=== PATIENT | male | born 1970 | race Hispanic/Latino ===

== ENCOUNTER 2017-07-05 13:27 | Emergency (ER) | payer BC ==
[2017-07-05 14:05] VITALS: BP 117/73
[2017-07-05 14:33] LABS: Basophils % (Auto) 0.3 % (0.0-1.8); Eosinophils % (Auto) 0.6 % (0.0-4.3); Hematocrit 42.2 % (35.5-45.6); Hemoglobin 14.4 gm/dl (11.8-15.2); Mean Corpuscular HGB Conc 34 % (32-34); Mean Corpuscular Hemoglobin 32 pg (28-32); Mean Corpuscular Volume 94 fl (84-94); Platelet Count 249 K/mm3 (140-440); Red Cell Distribution Width 12.2 % (13.2-15.2); White Blood Count 9.8 K/mm3 (4.5-11.0)
[2017-07-05 14:56] LABS: Anion Gap 19 mmol/L; BUN/Creatinine Ratio 21; Blood Urea Nitrogen 17 mg/dL (9-20); Calcium 9.1 mg/dL (8.4-10.2); Carbon Dioxide 25 mmol/L (22-30); Chloride 100.2 mmol/L (98-107); Glucose 91 mg/dL (75-100); Potassium 4.9 mmol/L (3.6-5.0); Sodium 139 mmol/L (137-145)
[2017-07-05 16:05] LABS: INR 0.98 (0.87-1.13)
[2017-07-05 16:06] LABS: Partial Thromboplastin Time 31.3 Sec. (24.2-36.6)
[2017-07-05 16:21] LABS: Alanine Aminotransferase 40 units/L (7-56); Albumin 4.7 g/dL (3.9-5); Alkaline Phosphatase 80 units/L (35-129)
[2017-07-05 16:27] LABS: Bilirubin,Direct < 0.2 mg/dL (0-0.2); Bilirubin,Indirect 0.1 mg/dL
--- NOTE | 2017-07-05 17:46 | Event Note ---
Date: 07/05/17 I have seen and evaluated the patient for chest heaviness, and the plan is to admit for stress test, but patient refused and signed AMA from ED.
--- NOTE | 2017-07-05 18:07 | Emergency Department Report ---
ED Chest Pain HPI - General Chief Complaint: Chest Pain Stated Complaint: CHEST PAIN Time Seen by Provider: 07/05/17 15:09 Source: patient, EMS Mode of arrival: Ambulatory Limitations: No Limitations - History of Present Illness Initial Comments: Patient complained of acute onset of heaviness in his substernal region associated with left arm numbness. He denied shortness of breath, nausea, vomiting or acute sweating. EMS was called from his workplace. He was transported given 4 baby aspirin and one nitroglycerin. The patient states that the pain had subsided by the time of bed placement. Total time of chest heaviness was greater than 2 hours. The patient states he's never experienced anything like this before. He states he went to a splicer machine operator perhaps about 5 years ago for evaluation of palpitations. He was told "nothing was wrong". The patient does admit to being a former smoker. He has elevated cholesterol and is on medication thereof. MD Complaint: chest pain -: Gradual Onset: during rest Pain Location: substernal Pain Radiation: other Severity: moderate, severe Severity scale (0 -10): 0 Quality: heaviness (associated left arm numbness) Consistency: now resolved Improves With: nitroglycerin (possibly see above note) Worsens With: nothing re: denies: nausea, vomting, diaphoresis, dyspnea Other Symptoms: denies: cough, fever, syncope Treatments Prior to Arrival: none Aspirin use within the Past 7 Days: (0) No - Related Data Home Medications Medication Instructions Recorded Confirmed Last Taken Atorvastatin Calcium [Lipitor] 20 mg PO DAILY 07/05/17 07/05/17 07/04/17 Allergies Allergy/AdvReac Type Severity Reaction Status Date / Time acetylcysteine Allergy Unknown Verified 07/05/17 14:05 [From Mucomyst] Heart Score - HEART Score History: Highly suspicious EKG: Normal Age: 45-65 Risk factors: > 3 risk factors or hx of atherosclerotic disease Troponin: < normal limit HEART Score: 5 - Critical Actions Critical Actions: 4-6 pts:12-16.6% risk of adverse cardiac event. Should be admitted ED Review of Systems ROS: Stated complaint: CHEST PAIN Other details as noted in HPI Constitutional: denies: chills, fever Eyes: denies: eye pain, eye discharge, vision change ENT: denies: ear pain, throat pain Respiratory: denies: cough, shortness of breath, wheezing Cardiovascular: as per HPI, chest pain. denies: palpitations Endocrine: no symptoms reported Gastrointestinal: denies: abdominal pain, nausea, diarrhea Genitourinary: denies: urgency, dysuria Musculoskeletal: denies: back pain, joint swelling, arthralgia Skin: denies: rash, lesions Neurological: denies: headache, weakness, paresthesias Psychiatric: denies: anxiety, depression Hematological/Lymphatic: denies: easy bleeding, easy bruising ED Past Medical Hx - Past Medical History Previous Medical History?: Yes Additional medical history: high cholesterol - Surgical History Past Surgical History?: No - Social History Smoking Status: Never Smoker Substance Use Type: None - Medications Home Medications: Home Medications Medication Instructions Recorded Confirmed Last Taken Type Atorvastatin Calcium [Lipitor] 20 mg PO DAILY 07/05/17 07/05/17 07/04/17 History ED Physical Exam - General Limitations: No Limitations General appearance: alert, in no apparent distress - Head Head exam: Present: atraumatic, normocephalic - Eye Eye exam: Present: normal appearance, PERRL, EOMI. Absent: scleral icterus - ENT ENT exam: Present: mucous membranes moist - Neck Neck exam: Present: normal inspection. Absent: tenderness, meningismus - Respiratory Respiratory exam: Present: normal lung sounds bilaterally. Absent: respiratory distress - Cardiovascular Cardiovascular Exam: Present: regular rate, normal rhythm. Absent: systolic murmur, diastolic murmur, rubs, gallop - GI/Abdominal GI/Abdominal exam: Present: soft, normal bowel sounds. Absent: distended, tenderness, guarding, rebound, rigid - Rectal Rectal exam: Present: deferred - Extremities Exam Extremities exam: Present: normal inspection, normal capillary refill. Absent: tenderness, pedal edema, joint swelling, calf tenderness - Back Exam Back exam: Present: normal inspection - Neurological Exam Neurological exam: Present: alert, oriented X3, CN II-XII intact. Absent: motor sensory deficit - Psychiatric Psychiatric exam: Present: normal affect, normal mood - Skin Skin exam: Present: warm, dry, intact, normal color. Absent: rash ED Course Vital Signs 07/05/17 13:56 Temperature 98.7 F Pulse Rate 90 Respiratory 16 Rate Blood Pressure 117/73 O2 Sat by Pulse 98 Oximetry - Reevaluation(s) Reevaluation #1: Patient was informed that his history is entirely consistent with coronary artery disease. He was furthermore informed that he has several risk for factors for coronary artery disease. He was told that admission is strongly indicated and routine in this circumstance. He was explained what would happen after admission typically. The hospitalist was notified. The hospitalist similarly offered him admission and stress testing. I personally discussed with him the fact that his chest pain has improved with her without nitroglycerin is not an indication that he does not have significant coronary artery disease I explained this to him, his mother and perhaps it was a coworker. It was explained in very plain language. There was no doubt that they understood the risks of discharge in these circumstances. I thought the patient had agreed because that is what he stated to me. However, when I had an opportunity to dictate this chart I see that he signed out AGAINST MEDICAL ADVICE. 07/05/17 18:07 RAJ score - Raj Score Age > 65: (0) No Aspirin use within the Past 7 Days: (0) No 3 or more CAD Risk Factors: (1) Yes 2 or more Angina events in past 24 hrs: (0) No Known CAD with more than 50% Stenosis: (0) No Elevated Cardiac Markers: (0) No ST Deviation Greater than 0.5mm: (0) No RAJ Score: 1 ED Medical Decision Making - Lab Data Result diagrams: 07/05/17 14:11 07/05/17 14:11 Laboratory Results - last 24 hr 07/05/17 07/05/17 07/05/17 14:11 14:11 15:35 WBC 9.8 RBC 4.50 Hgb 14.4 Hct 42.2 MCV 94 MCH 32 MCHC 34 RDW 12.2 L Plt Count 249 Lymph % (Auto) 24.2 [place] % (Auto) 7.9 H Eos % (Auto) 0.6 Baso % (Auto) 0.3 Lymph # 2.4 [place] # 0.8 Eos # 0.1 Baso # 0.0 Seg Neutrophils % 67.0 Seg Neutrophils # 6.5 PT INR APTT Sodium 139 Potassium 4.9 Chloride 100.2 Carbon Dioxide 25 Anion Gap 19 BUN 17 Creatinine 0.8 Estimated GFR > 60 BUN/Creatinine Ratio 21 Glucose 91 Calcium 9.1 Total Bilirubin Direct Bilirubin Indirect Bilirubin AST ALT Alkaline Phosphatase Troponin T < 0.010 < 0.010 NT-Pro-B Natriuret Pep Total Protein Albumin Albumin/Globulin Ratio 07/05/17 07/05/17 15:35 15:35 WBC RBC Hgb Hct MCV MCH MCHC RDW Plt Count Lymph % (Auto) [place] % (Auto) Eos % (Auto) Baso % (Auto) Lymph # [place] # Eos # Baso # Seg Neutrophils % Seg Neutrophils # PT 13.5 INR 0.98 APTT 31.3 Sodium Potassium Chloride Carbon Dioxide Anion Gap BUN Creatinine Estimated GFR BUN/Creatinine Ratio Glucose Calcium Total Bilirubin 0.30 Direct Bilirubin < 0.2 Indirect Bilirubin 0.1 AST 24 ALT 40 Alkaline Phosphatase 80 Troponin T NT-Pro-B Natriuret Pep 16.73 Total Protein 7.0 Albumin 4.7 Albumin/Globulin Ratio 2.0 - EKG Data -: EKG Interpreted by Me EKG shows normal: sinus rhythm, axis, intervals, QRS complexes, ST-T waves Rate: normal - EKG Data Interpretation: normal EKG - Radiology Data interpreted by me: Chest x-ray shows no acute process Critical care attestation.: If time is entered above; I have spent that time in minutes in the direct care of this critically ill patient, excluding procedure time. ED Disposition Clinical Impression: Chest pain Qualifiers: Chest pain type: unspecified Qualified Code(s): R07.9 - Chest pain, unspecified Disposition: DC-07 LEFT AGAINST MED ADVICE Is pt being admited?: Yes Does the pt Need Aspirin: Yes (given in the field) Condition: Stable Instructions: Chest Pain (ED) Referrals: PRIMARY CARE, [Primary Care Provider] - 3-5 Days Time of Disposition: 16:30
--- NOTE | 2017-07-05 18:19 | History and Physical Report ---
History of Present Illness Date of examination: 07/05/17 Chief complaint: Chest pressure History of present illness: 47-year-old male with past medical history significant for hyperlipidemia presented to the emergency department complaining of substernal pressure-like sensation that happened while he was at work this morning. He rated 5/10, with no radiation, no associated shortness of breath but patient admitted for palpitation. He went to the fire station and they check his blood pressure was 200 x 110 and he was given nitroglycerin and aspirin, after that his blood pressure was 1 36 x 86 then he presented to the emergency department. Patient has been complaining he has been in a very stressful condition recently. REVIEW OF SYSTEMS: GENERAL: no weight change, no fatigue, no fever HEAD: no head ache EYES: no blurry vision, no acute visual loss EARS: no hearing loss, no discharge, no earache NOSE: no stuffiness, no sneezing, no discharge MOUTH, THROAT AND NECK: no bleeding gums, no sore throat, no swollen neck CARDIAC: + palpitations, no dyspnea on exertion, no orthopnea, no PND, no edema , no chest pain RESPIRATORY: no shortness of breath, no wheeze, no cough, no sputum, no hemoptysis, no asthma GI: no decreased appetite, no nausea, no vomiting, no dysphagia, no diarrhea, no constipation, no abdominal pain URINARY: no change in frequency, no urgency, no polyuria, no hematuria, no incontinence MUSCULOSKELETAL: no muscle weakness, no pain, no joint stiffness NEUROLOGIC: no loss of sensation/numbness, no tingling, no tremors, no weakness/ paralysis HEMATOLOGIC: no anemia, no easy bruising SKIN: no rashes ENDOCRINE: no heat/cold intolerance, no polyuria, no polydipsia, no thyroid problems, no diabetes PSYCHIATRIC: no anxiety, no depression, no suicidal ideations Past History Past Medical History: hyperlipidemia Past Surgical History: tonsillectomy, Other (right ankle surgery has a metal plate, anal fistula removal) Social history: full code. denies: smoking, alcohol abuse, prescription drug abuse, IV drug use Family history: hypertension (mother) Medications and Allergies Allergies Allergy/AdvReac Type Severity Reaction Status Date / Time acetylcysteine Allergy Unknown Verified 07/05/17 14:05 [From Mucomyst] Home Medications Medication Instructions Recorded Confirmed Last Taken Type Atorvastatin Calcium [Lipitor] 20 mg PO DAILY 12/04/17 12/04/17 12/03/17 History Exam - Physical Exam Narrative exam: Not in cardiopulmonary distress. The patient is obese. Vital signs as documented. Head exam is unremarkable. No scleral icterus . Neck is without jugular venous distension, thyromegaly, or carotid bruits. Lungs are clear to auscultation. Cardiac exam reveals regular rate and Rhythm. First and second heart sounds normal. No murmurs, rubs or gallops. Abdominal exam reveals normal bowel sounds, no masses, no organomegaly and no aortic enlargement. Extremities are nonedematous and both femoral and pedal pulses are normal. CLIENT SERVICES ASSISTANT: Alert and oriented 3. No focal weakness. - Constitutional Vitals: Temp Pulse Resp BP Pulse Ox 98.7 F 90 16 117/73 98 07/05/17 13:56 07/05/17 13:56 07/05/17 13:56 07/05/17 13:56 07/05/17 13:56 Results - Labs CBC & Chem 7: 07/05/17 14:11 07/05/17 14:11 Labs: Laboratory Last Values WBC 9.8 K/mm3 (4.5-11.0) 07/05/17 14:11 RBC 4.50 M/mm3 (3.65-5.03) 07/05/17 14:11 Hgb 14.4 gm/dl (11.8-15.2) 07/05/17 14:11 Hct 42.2 % (35.5-45.6) 07/05/17 14:11 MCV 94 fl (84-94) 07/05/17 14:11 MCH 32 pg (28-32) 07/05/17 14:11 MCHC 34 % (32-34) 07/05/17 14:11 RDW 12.2 % (13.2-15.2) L 07/05/17 14:11 Plt Count 249 K/mm3 (140-440) 07/05/17 14:11 Lymph % (Auto) 24.2 % (13.4-35.0) 07/05/17 14:11 [place] % (Auto) 7.9 % (0.0-7.3) H 07/05/17 14:11 Eos % (Auto) 0.6 % (0.0-4.3) 07/05/17 14:11 Baso % (Auto) 0.3 % (0.0-1.8) 07/05/17 14:11 Lymph # 2.4 K/mm3 (1.2-5.4) 07/05/17 14:11 [place] # 0.8 K/mm3 (0.0-0.8) 07/05/17 14:11 Eos # 0.1 K/mm3 (0.0-0.4) 07/05/17 14:11 Baso # 0.0 K/mm3 (0.0-0.1) 07/05/17 14:11 Seg Neutrophils % 67.0 % (40.0-70.0) 07/05/17 14:11 Seg Neutrophils # 6.5 K/mm3 (1.8-7.7) 07/05/17 14:11 PT 13.5 Sec. (12.2-14.9) 07/05/17 15:35 INR 0.98 (0.87-1.13) 07/05/17 15:35 APTT 31.3 Sec. (24.2-36.6) 07/05/17 15:35 Sodium 139 mmol/L (137-145) 07/05/17 14:11 Potassium 4.9 mmol/L (3.6-5.0) 07/05/17 14:11 Chloride 100.2 mmol/L (98-107) 07/05/17 14:11 Carbon Dioxide 25 mmol/L (22-30) 07/05/17 14:11 Anion Gap 19 mmol/L 07/05/17 14:11 BUN 17 mg/dL (9-20) 07/05/17 14:11 Creatinine 0.8 mg/dL (0.8-1.5) 07/05/17 14:11 Estimated GFR > 60 ml/min 07/05/17 14:11 BUN/Creatinine Ratio 21 % 07/05/17 14:11 Glucose 91 mg/dL (75-100) 07/05/17 14:11 Calcium 9.1 mg/dL (8.4-10.2) 07/05/17 14:11 Total Bilirubin 0.30 mg/dL (0.1-1.2) 07/05/17 15:35 Direct Bilirubin < 0.2 mg/dL (0-0.2) 07/05/17 15:35 Indirect Bilirubin 0.1 mg/dL 07/05/17 15:35 AST 24 units/L (5-40) 07/05/17 15:35 ALT 40 units/L (7-56) 07/05/17 15:35 Alkaline Phosphatase 80 units/L (35-129) 07/05/17 15:35 Troponin T < 0.010 ng/mL (0.00-0.029) 07/05/17 15:35 NT-Pro-B Natriuret Pep 16.73 pg/mL (0-450) 07/05/17 15:35 Total Protein 7.0 g/dL (6.3-8.2) 07/05/17 15:35 Albumin 4.7 g/dL (3.9-5) 07/05/17 15:35 Albumin/Globulin Ratio 2.0 % 07/05/17 15:35 - Imaging and Cardiology EKG: image reviewed (EKG normal sinus rhythm) Assessment and Plan Assessment and plan: Chest pressure - Positive cardiac enzyme was negative, will do serial cardiac enzymes and EKG - Having a stressful situation is a risk factor for heart attack - Patient needs stress test Hyperlipidemia - Continue Lipitor DVT prophylaxis - Lovenox Disposition - Admit to telemetry. Advance Directives: Yes VTE prophylaxis?: Chemical Plan of care discussed with patient/family: Yes
--- NOTE | 2017-07-06 07:58 | XRay Report ---
AP CHEST: History: Chest pain. AP view of the chest demonstrates a normal mediastinal and cardiac contour with clear lungs and normal bony and soft tissue structures. IMPRESSION: Normal AP chest.
== END 2017-07-05 18:15 | disposition left against medical advice (07) ==
LOC: ED 13:27 → 4A 15:43 → UNDOADMIN 15:43 → ED 18:15
DX: R07.2 Precordial pain (principal); R20.0 Anesthesia of skin; E78.5 Hyperlipidemia, unspecified; Z88.8 Allergy status to other drugs, medicaments and biological substances
CPT/HCPCS: 36415; 71010; 80048; 80074; 83880; 84484; 85025; 85610; 85730; 93005; 93010; 99285